=== PATIENT | female | born 1995 | race Caucasian/White ===

== ENCOUNTER 2017-03-13 12:17 | Emergency (ER) | payer OTHER ==
[~2017-03-13] VITALS: Ht 160 cm; Wt 79.0 kg
[2017-03-13 12:20] VITALS: Ht 160 cm; Wt 79.0 kg
[2017-03-13] MEDS ORDERED: LORAZEPAM 1 MG TAB PO ONE (12:30)
--- NOTE | 2017-03-13 12:33 | ERD ---
ER Documentation Chief Complaint Date/Time DATE: 03/13/17 TIME: 12:30 Chief Complaint anxioty, panic attack HPI Patient is a 21-year-old female who states she is having severe panic attack. She has a history of anxiety and used to take Klonopin which she no longer takes. She states she is usually able to control her minor panic attacks with breathing exercise however at this time the anxiety got too much. She thinks it may be stress from moving. She admits to shortness of breath and feeling dizzy. She has not taken any medications for this. This began about 15 minutes before arriving to the emergency room. No chest pain. ROS All systems reviewed and are negative except as per history of present illness. Medications Home Meds Active Scripts Lorazepam* (Lorazepam*) 1 Mg Tablet, 1 MG PO Q8, #10 TAB Prov:PLACIDO DRAKE PA-C 03/13/17 Allergies Allergies: Coded Allergies: No Known Allergy (Unverified , 03/13/17) PMhx/Soc History of Surgery: No Anesthesia Reaction: No Hx Neurological Disorder: No Hx Respiratory Disorders: No Hx Cardiac Disorders: No Hx Psychiatric Problems: Yes (Anxiety) Hx Miscellaneous Medical Probl: No Hx Alcohol Use: Yes (social) Hx Substance Use: No Hx Tobacco Use: No Smoking Status: Never smoker FmHx Family History: No diabetes Physical Exam Vitals Vital Signs Date Time Temp Pulse Resp B/P Pulse Ox O2 Delivery O2 Flow Rate FiO2 03/13/17 12:20 98.3 109 19 119/56 99 Physical Exam General: well developed, well nourished, alert, nontoxic, shaky and anxious Head: normocephalic, atraumatic Eyes: PERRL, normal conjunctiva Neck: Supple, nontender, no lymphadenopathy, no midline tenderness Respiratory: Clear to auscaultation bilaterally, speaks in full sentences, no use of accesory muscles or labored breathing, no rales, ronchi, or wheezing Cardiovascular: RRR, No murmurs Back: no midline tenderness, no step offs or bony abnormalities, sensation to light touch in tact Results 24 hrs Current Medications Medications (Trade) Dose Ordered Sig/Milana Route PRN Reason Start Time Stop Time Status Last Admin Dose Admin Lorazepam (Ativan) 1 mg ONCE ONCE PO 03/13/17 12:30 03/13/17 12:31 DC 03/13/17 12:28 Procedures/MDM Patient is here with acute anxiety attack. She is given Ativan here in the emergency room. She had improvement of her symptoms and she was discharged with a small amount of Ativan. Recommended this patient follow up with her primary care doctor within 48 hours or return to the emergency room for any worsening of symptoms. However this time I do believe there is suitable for outpatient management. I answered all their questions and they agreed with the plan and were discharged home. Departure Diagnosis: Primary Impression: Anxiety Condition: Stable PLACIDO DRAKE PA-C Mar 13, 2017 12:33
[2017-03-13] MEDS ORDERED: LORA1TAB PO (12:34)
== END 2017-03-13 13:08 | disposition home or self-care (01) ==
LOC: FTE 12:17
DX: F41.9 Anxiety disorder, unspecified (principal)
CPT/HCPCS: Z7502; Z7610; 99283